=== PATIENT | female | born 1990 | race Caucasian/White ===

== ENCOUNTER 2023-02-08 08:24 | Emergency (ER) | payer OTHER, SELFPAY ==
[2023-02-08 08:42] VITALS: BP 127/84; PULSE 110; RESP 16; TEMP 37.1; O2SAT 100
--- NOTE | 2023-02-08 09:00 | ED.SKABFB ---
HPI - Skin/Abscess/Foreign Bdy General Chief complaint: Skin/Abscess/Foreign Body Stated complaint: RED SPOT ON CHEST Time Seen by Provider: 02/08/23 09:00 Source: patient Mode of arrival: ambulatory Limitations: no limitations History of Present Illness HPI narrative: 33 yo F presents with c/o infected cyst to chest. States has had cyst for approx. 4 yrs. 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 States now painful, red and swollen. no drainage. Did apply heating pad last night. afebrile. All systems reviewed and negative except as noted above. Related Data Home Medications Medication Instructions Recorded Confirmed escitalopram oxalate 10 mg tablet 10 mg PO DAILY 02/08/23 02/08/23 norgestrel 0.3 mg-ethinyl 1 tablet PO DAILY 02/08/23 02/08/23 estradiol 30 mcg tablet (Low-Ogestrel (28)) Allergies Allergy/AdvReac Type Severity Reaction Status Date / Time No Known Allergies Allergy Verified 02/08/23 08:56 Review of Systems Review of Systems: CONSTITUTIONAL: Denies fever, chills, or sweats. EYES: Denies visual changes, redness, or discharge. ENT: Denies rhinorrhea, congestion, sore throat, or otalgia. CARDIOVASCULAR: Denies chest pain, palpitations, or edema. RESPIRATORY: Denies cough or dyspnea. GASTROINTESTINAL: Denies abdominal pain, nausea, vomiting, or diarrhea. GENITOURINARY: Denies dysuria or hematuria. SKIN: Denies rash or itching. Reports infected cyst to chest MUSCULOSKELETAL: Denies back pain, joint pain, or myalgia. NEUROLOGIC: Denies headache, numbness, or weakness. PSYCHIATRIC: Denies anxiety or depression. All other systems reviewed are negative, except as documented in HPI. PMFSH Comments At time of signature, agree with nursing past medical, surgical, social and family history. There is no relevant family history pertinent to the presenting complaint. Exam Narrative: GENERAL: This is a well-nourished, well-developed patient, in no apparent distress. HEAD: normocephalic, atraumatic. EYES: PERRL. Sclera clear/white. Vision is grossly intact. EARS: External ears normal NOSE: External nose normal NECK: Neck supple, non-tender without lymphadenopathy, masses or thyromegaly. CARDIOVASCULAR: Regular rate and rhythm without murmurs, gallops, or rubs. RESPIRATORY: Clear to auscultation. Breath sounds equal bilaterally. No wheezes, rales, or rhonchi. SKIN: warm, Dry, intact with no suspicious rash, good texture and turgor. cyst to center of chest near R breast tissue, approx. 2 to 3 cm. erythematous, indurated, no fluctuance or drainage NEURO: awake, alert, and oriented to person, place and time. There were no obvious focal neurologic abnormalities. EXTREMITIES: No joint tenderness, effusion, or edema noted. Chest: Chest/axillae images: 1. infected cyst Course Course Level of Care: Express Care Visit Vital Signs Vital signs: Vital Signs Temperature 37.1 C 02/08/23 08:42 Pulse Rate 110 H 02/08/23 08:42 Respiratory Rate 16 02/08/23 08:42 Blood Pressure 127/84 02/08/23 08:42 Pulse Oximetry 100 02/08/23 08:42 Temperature 37.1 C 02/08/23 08:42 Pulse Rate 110 H 02/08/23 08:42 Respiratory Rate 16 02/08/23 08:42 Blood Pressure 127/84 02/08/23 08:42 Pulse Oximetry 100 02/08/23 08:42 reviewed MDM - Skin/Abscess/Foreign Bdy MDM Narrative Medical decision making narrative: Patient is aware of diagnosis, understands and agrees to treatment plan. Anticipatory guidance given. Patient agrees to follow-up as directed and is aware of reasons to seek care at the emergency department. Portions of this record may have been created with voice recognition software cyst not appropriate for I and D. will treat with clindamycin and bactroban. recommend follow up with divine healer. Discharge Plan Discharge Clinical Impression: Infected cyst of skin Patient Disposition: Home, Self-Care Condition: Stable Instructions: Antibioti
== END 2023-02-08 09:09 | disposition home or self-care (01) ==
PROVIDERS: Emergency Provider Nurse Practitioner Family
DX: L72.9 Follicular cyst of the skin and subcutaneous tissue, unspecified (principal)
CPT/HCPCS: 99213; G0463

== ENCOUNTER 2025-02-11 15:59 | Emergency (ER) | payer OTHER, SELFPAY ==
--- NOTE | ~2025-02-11 | CT_ITS ---
EXAMINATION: CTA brain carotid DATE: 02/11/2025 19:33 [facility] INDICATION: Transient monocular vision loss TECHNIQUE: Computed tomographic angiography (CTA) of the head was performed without and with 100 mL Omnipaque-350 intravenous contrast. CTA of the neck was performed with intravenous contrast. The dose-length product was 1673.80 mGy-cm. Maximum intensity projection and volume rendered 3D-reconstructions were created by the technologist on a separate workstation. COMPARISON: None. FINDINGS: HEAD CT/CTA: Normal brain parenchymal volume. Normal wolff-white differentiation. No ventriculomegaly or midline shift. Orbits are symmetric without disconjugate gaze. No acute infarction, hemorrhage, mass or mass effect. Basilar cisterns are patent. Paranasal sinuses and mastoids are pneumatized. No depressed skull fractures. The intracranial arteries are within normal limits in course and caliber without evidence for aneurysm, significant stenosis or occlusion. No vascular anomalies. Dominant right vertebral artery. NECK CTA: The carotid arteries are normal in course and caliber without evidence for significant atherosclerotic change, dissection or occlusion. Vertebral arteries are normal in course and caliber. The origins of the common carotid and vertebral arteries are normal. Lung apices are normal. There is 0% stenosis of the proximal right internal carotid artery relative to normal distal artery lumen diameter (NASCET criteria). There is 0% stenosis of the proximal left internal carotid artery relative to normal distal artery lumen diameter. IMPRESSION: 1.: Unremarkable CT angiogram of the head and neck. No acute intracranial abnormality. Reviewed, dictated and finalized at location [facility] IMPRESSION: 1.: Unremarkable CT angiogram of the head and neck. No acute intracranial abnor mality.
[2025-02-11 16:15] VITALS: BP 137/95; PULSE 98; RESP 16; TEMP 36.7; O2SAT 100
--- NOTE | 2025-02-11 17:25 | ED.EYEPROB ---
HPI - Eye Problem General Chief complaint: Eye Problems <Jie Salmon PA-C - Last Filed: 02/12/25 17:10> Stated complaint: lost vision in L eye yesterday, has since returned <Jie Salmon PA-C - Last Filed: 02/12/25 17:10> Time Seen by Provider: 02/11/25 17:25 <Jie Salmon PA-C - Last Filed: 02/12/25 17:10> Focused HPI: This is a 35 year old female that presents to the ER for transient monocular vision loss. Reports she turned her head and then turned back around and could only see out of a very small spot in the left eye. Lasted for about 3-4 hours. She saw her eye doctor yesterday after this. She was prompted to be seen in the ER to rule out a stroke. Wears glasses and contacts. GENERAL: Well-appearing, well-nourished, and in no acute distress. HEAD: Normocephalic, atraumatic. CHEST: Clear to auscultation. ?No respiratory distress. HEART: Regular rate and rhythm.? NEURO: ?Alert and oriented x3. Patient screened in triage and initial orders placed.? ?Additional care and disposition to be based upon?diagnostic testing and treatment. <Jie Salmon PA-C - Last Filed: 02/12/25 17:10> History of Present Illness HPI Narrative: Agree with above HPI. Patient also reports a significant history of ocular migraines. Denies headache, nausea/vomiting, slurred speech, facial droop, or problems with ambulation. <ADRIÁN Sellers Last Filed: 02/12/25 01:55> Related Data Home medications: Home Medications ?Medication ?Instructions ?Recorded ?Confirmed ?Last Taken ?Type escitalopram oxalate 10 mg tablet 10 mg PO DAILY 02/08/23 02/08/23 Unknown History norgestrel 0.3 mg-ethinyl 1 tablet PO DAILY 02/08/23 02/08/23 Unknown History estradiol 30 mcg tablet (Low-Ogestrel (28)) <Jie Salmon PA-C - Last Filed: 02/12/25 17:10> Allergies/adverse reactions: Allergies Allergy/AdvReac Type Severity Reaction Status Date / Time No Known Allergies Allergy Verified 02/11/25 16:18 <Jie Salmon PA-C - Last Filed: 02/12/25 17:10> Review of Systems Review of Systems: All systems reviewed & are unremarkable except as noted in HPI and below <ADRIÁN Sellers - Last Filed: 02/12/25 01:55> Exam Narrative: GENERAL: Well-appearing, well-nourished, and in no acute distress. HEAD: Normocephalic, atraumatic. EYES: PERRLA and EOMI. ENT: Nares clear, no rhinorrhea or epistaxis. Mucous membranes moist. Oropharynx without tonsillar hypertrophy exudate or other lesions. Bilateral TMs pearly wolff non-bulging NECK: Supple. No adenopathy or masses. No carotid bruits or JVD CHEST: Clear to auscultation. No respiratory distress. No wheezes rales or rhonchi HEART: Regular rate and rhythm. No murmur heard. Normal peripheral pulses. ABDOMEN: Soft, nontender, nondistended, normal active bowel sounds. EXTREMITIES: Normal range of motion. No edema. SKIN: Warm, dry, no rash. NEURO: A&O X3. Speech clear. Follows commands. CN II-XII intact. Sensation grossly intact. Steady gait. No ataxic movements. Strength 5/5 in upper and lower extremities bilaterally. Qqon-dg-[id number] and dohccv-wg-aarf testing intact bilaterally. No pronator drift. PSYCH: Normal mood and affect <ADRIÁN Sellers - Last Filed: 02/12/25 01:55> Course Vital Signs Vital signs: Vital Signs Temperature 36.7 C 02/11/25 16:15 Pulse Rate 98 02/11/25 16:15 Respiratory Rate 16 02/11/25 16:15 Blood Pressure 137/95 H 02/11/25 16:15 Pulse Oximetry 100 02/11/25 16:15 Oxygen Delivery Room Air 02/11/25 16:15 Temperature 36.7 C 02/11/25 16:15 Pulse Rate 93 02/11/25 22:00 Respiratory Rate 20 02/11/25 22:00 Blood Pressure 119/78 02/11/25 22:00 Pulse Oximetry 98 02/11/25 22:00 Oxygen Delivery Room Air 02/11/25 16:15 <Jie Salmon PA-C - Last Filed: 02/12/25 17:10> Vital Signs Temperature 36.7 C 02/11/25 16:15 Pulse Rate 98 02/11/25 16:15 Respiratory Rate 16 02/11/25 16:15 Blood Pressure 137/95 H 02/11/25 16:15 Pulse Oximetry 100 02/11/25 16:15 Oxygen Delivery Room Air 02/11/25 16:15 Temperature 36.7 C 02/11/25 16:15 Pulse Rate 93 02/11/25 22:00 Respiratory Rate 20 02/11/25 22:00 Blood Pressure 119/78 02/11/25 22:00 Pulse Oximetry 98 02/11/25 22:00 Oxygen Delivery Room Air 02/11/25 16:15 <ADRIÁN Sellers - Last Filed: 02/12/25 01:55> [facility] Narrative Medical decision making narrative: This is a 35 year old female that presents to the ER for transient monocular vision loss. Reports she turned her head and then turned back around and could only see out of a very small spot in the left eye. Lasted for about 3-4 hours. She saw her eye doctor yesterday after this. She was prompted to be seen in the ER to rule out a stroke. Wears glasses and contacts. Patient also reports a significant history of ocular migraines. Denies headache, nausea/vomiting, slurred speech, facial droop, history of trauma, or problems with ambulation. Upon my initial assessment patient appears nontoxic with stable vitals reporting no complaints. Thorough neurological exam exhibits no acute abnormalities or focal deficits. Lab work, imaging, and EKG without significant high-risk changes. Differential diagnosis and treatment plan were discussed with the patient. Patient agrees with discussion and after shared medical decision making agrees with plan of care. All questions were answered to the patient's satisfaction. The patient is appropriate for outpatient treatment and follow-up. Given reasons to return. <ADRIÁN Sellers - Last Filed: 02/12/25 01:55> Differential Diagnosis Differential Diagnosis: Differential diagnostic considerations for headache include ICH, IC infx, migraine, tension CLINE, CVA/TIA, vasculitis/arteritis, cluster headache, dissection (carotid/vertebral), tumor/mass/abscess, thrombosis, meningitis, sinusitis, post-concussion syndrome. <ADRIÁN Sellers - Last Filed: 02/12/25 01:55> Medical Records I have reviewed the following patient records and this information was taken into consideration when formulating the assessment and plan.: previous ER visits <ADRIÁN Sellers - Last Filed: 02/12/25 01:55> Lab Data MDM Lab Attestation statement: I personally reviewed the patient's lab results. <ADRIÁN Sellers - Last Filed: 02/12/25 01:55> Result diagrams: 02/11/25 17:59 02/11/25 17:59 <Jie Salmon PA-C - Last Filed: 02/12/25 17:10> Labs: Lab Results 02/11/25 02/11/25 02/11/25 Range/Units 17:59 18:55 18:56 WBC 5.5 (4.5-10.0) K/mm3 RBC 4.31 (4.2-5.4) M/mm3 Hgb 13.8 (12.0-15.0) g/dL Hct 40.9 (37.0-47.0) % MCV 94.9 (80-100) fl MCH 32.0 (26-34) pg MCHC 33.7 (32-36) g/dl RDW 12.9 (11.5-14.5) % Plt Count 285 (150-375) k/mm3 MPV 10.7 H (7.4-10.4) fl Immature Gran % (Auto) 0.2 (0-0.5) % Neut % (Auto) 55.2 (45.5-73.1) % Lymph % (Auto) 35.9 (18.3-44.2) % [place] % (Auto) 5.6 (2.6-8.5) % Eos % (Auto) 2.2 (0-4.4) % Baso % (Auto) 0.9 (0.2-1.2) % Lymph # (Auto) 1.98 (0.9-3.2) K/mm3 [place] # (Auto) 0.3 (0.1-0.6) K/mm3 Eos # (Auto) 0.1 (0-0.3) K/mm3 Baso # (Auto) 0.1 (0.0-0.1) K/mm3 Abs Immat Gran (auto) 0.01 (0.00-0.031) K/mm3 Absolute Neuts (auto) 3.0 (1.3-6.7) K/mm3 Absolute Nucleated RBC 0.000 (0.0-0.012) K/mm3 Nucleated RBC % 0.0 (0.0-0.2) % PT 12.8 (11.1-14.7) Seconds INR 1.0 APTT 31.3 (22.3-36.8) Seconds Sodium 137 (137-145) mmol/L Potassium 4.0 (3.4-5.0) mmol/L Chloride 106 (98-107) mmol/L Carbon Dioxide 23 (22-30) mmol/L Anion Gap 8 (4-12) mmol/L BUN 10 (7-17) mg/dL Creatinine 0.77 (0.7-1.0) mg/dL Estim Creat Clear Calc 94 ml/min Estimated GFR > 60 (59 - ) Glucose 96 (65-110) mg/dL POC Capillary Glucose 90 (65-105) mg/dl Calcium 9.3 (8.4-10.2) mg/dL Total Bilirubin 0.5 (0.2-1.3) mg/dL AST 30 (14-36) U/L ALT 30 (6-35) U/L Alkaline Phosphatase 58 (38-126) U/L Troponin I < 0.012 (0.000-0.034) ng/mL Total Protein 7.6 (6.3-8.2) g/dL Albumin 4.4 (3.5-5.1) g/dL POC Urine HCG, Qual Negative (Negative) <Jie Salmon PA-C - Last Filed: 02/12/25 17:10> Lab Results 02/11/25 02/11/25 02/11/25 Range/Units 17:59 18:55 18:56 WBC 5.5 (4.5-10.0) K/mm3 RBC 4.31 (4.2-5.4) M/mm3 Hgb 13.8 (12.0-15.0) g/dL Hct 40.9 (37.0-47.0) % MCV 94.9 (80-100) fl MCH 32.0 (26-34) pg MCHC 33.7 (32-36) g/dl RDW 12.9 (11.5-14.5) % Plt Count 285 (150-375) k/mm3 MPV 10.7 H (7.4-10.4) fl Immature Gran % (Auto) 0.2 (0-0.5) % Neut % (Auto) 55.2 (45.5-73.1) % Lymph % (Auto) 35.9 (18.3-44.2) % [place] % (Auto) 5.6 (2.6-8.5) % Eos % (Auto) 2.2 (0-4.4) % Baso % (Auto) 0.9 (0.2-1.2) % Lymph # (Auto) 1.98 (0.9-3.2) K/mm3 [place] # (Auto) 0.3 (0.1-0.6) K/mm3 Eos # (Auto) 0.1 (0-0.3) K/mm3 Baso # (Auto) 0.1 (0.0-0.1) K/mm3 Abs Immat Gran (auto) 0.01 (0.00-0.031) K/mm3 Absolute Neuts (auto) 3.0 (1.3-6.7) K/mm3 Absolute Nucleated RBC 0.000 (0.0-0.012) K/mm3 Nucleated RBC % 0.0 (0.0-0.2) % PT 12.8 (11.1-14.7) Seconds INR 1.0 APTT 31.3 (22.3-36.8) Seconds Sodium 137 (137-145) mmol/L Potassium 4.0 (3.4-5.0) mmol/L Chloride 106 (98-107) mmol/L Carbon Dioxide 23 (22-30) mmol/L Anion Gap 8 (4-12) mmol/L BUN 10 (7-17) mg/dL Creatinine 0.77 (0.7-1.0) mg/dL Estim Creat Clear Calc 94 ml/min Estimated GFR > 60 (59 - ) Glucose 96 (65-110) mg/dL POC Capillary Glucose 90 (65-105) mg/dl Calcium 9.3 (8.4-10.2) mg/dL Total Bilirubin 0.5 (0.2-1.3) mg/dL AST 30 (14-36) U/L ALT 30 (6-35) U/L Alkaline Phosphatase 58 (38-126) U/L Troponin I < 0.012 (0.000-0.034) ng/mL Total Protein 7.6 (6.3-8.2) g/dL Albumin 4.4 (3.5-5.1) g/dL POC Urine HCG, Qual Negative (Negative) <ADRIÁN Sellers Last Filed: 02/12/25 01:55> Imaging Data Attestation: I personally reviewed and interpreted this imaging study as follows: <ADRIÁN Sellers Last Filed: 02/12/25 01:55> Radiologist's impression: ITS Impressions Head/Neck CTA 02/11/25 19:33 IMPRESSION: 1.: Unremarkable CT angiogram of the head and neck. No acute intracranial abnormality. <Jie Salmon PA-C - Last Filed: 02/12/25 17:10> ITS Impressions Head/Neck CTA 02/11/25 19:33 IMPRESSION: 1.: Unremarkable CT angiogram of the head and neck. No acute intracranial abnormality. <ADRIÁN Sellers Last Filed: 02/12/25 01:55> ECG Data EKG #1: ECG completion date: 02/11/25 <ADRIÁN Sellers Last Filed: 02/12/25 01:55> ECG completion time: 18:11 <ADRIÁN Sellers Last Filed: 02/12/25 01:55> normal rate, sinus rhythm and no acute changes <ADRIÁN Sellers Last Filed: 02/12/25 01:55> Critical Care Time Critical Care Time Critical Care Time: No <МАРИЯ Diaz Last Filed: 02/12/25 17:10> Discharge Plan Discharge Clinical Impression: Peripheral vision loss, Ocular migraine <МАРИЯ Diaz Last Filed: 02/12/25 17:10> Patient Disposition: Home <МАРИЯ Diaz Last Filed: 02/12/25 17:10> Condition: Stable <МАРИЯ Diaz Last Filed: 02/12/25 17:10> Instructions: Ocular Migraine (ED) <МАРИЯ Diaz Last Filed: 02/12/25 17:10> Additional Instructions: Return to the emergency department if you experience fever, chest pain, shortness of breath, abdominal pain with nausea and vomiting, weakness, numbness/tingling, or any other symptoms that are concerning to you. Follow up with primary care doctor. <МАРИЯ Diaz Last Filed: 02/12/25 17:10> Patient Language: Kazakh <МАРИЯ Diaz Last Filed: 02/12/25 17:10> Prescriptions: No Action Low-Ogestrel (28) 0.3-30 mg-mcg tablet 1 tablet PO DAILY escitalopram oxalate 10 mg tablet 10 mg PO DAILY clindamycin HCl 300 mg capsule 300 mg PO Q8H 10 Days Qty: 30 0RF mupirocin 2 % ointment 1 applic topical BID 7 Days Qty: 15 0RF <МАРИЯ Diaz Last Filed: 02/12/25 17:10> Follow-up/Referrals: PHYSICIAN,MARKETING PRODUCTION MANAGER [Primary Care Provider, Internal Medicine] <МАРИЯ Diaz Last Filed: 02/12/25 17:10>
--- NOTE | 2025-02-11 17:27 | ECG_ITS ---
Test Date: 2025-02-11 18:11:48 Measurements Intervals [place] Rate: 77 P: 46 NH: 154 QRS: 51 QRSD: 98 T: 8 QT: 371 QTc: 421 Interpretive Statements SINUS RHYTHM WITH SINUS ARRHYTHMIA BASELINE ARTIFACT- I, III, AVL NORMAL ECG No previous ECG available for comparison Electronically Signed On 02-11-2025 20:38:01 MARKET RESEARCH SPECIALIST by Shay Wilkins D.O.
[2025-02-11 17:50] VITALS: BP 138/89; PULSE 95; RESP 13; O2SAT 100
[2025-02-11 18:09] LABS: Hematocrit 40.9 % (37.0-47.0); Hemoglobin 13.8 g/dL (12.0-15.0); Immature Granulocyte Percent A 0.2 % (0-0.5); Lymphocytes Absolute Auto 1.98 K/mm3 (0.9-3.2); Mean Corpuscular HGB Conc 33.7 g/dl (32-36); Mean Corpuscular Hemoglobin 32.0 pg (26-34); Mean Corpuscular Volume 94.9 fl (80-100); Nucleated Red Blood Cells Absolute Auto 0.000 K/mm3 (0.0-0.012); Nucleated Red Blood Cells Perc 0.0 % (0.0-0.2); Platelet Count Result 285 k/mm3 (150-375); Red Blood Count 4.31 M/mm3 (4.2-5.4); White Blood Count 5.5 K/mm3 (4.5-10.0)
[2025-02-11 18:30] LABS: INR 1.0; Partial Thromboplastin Time 31.3 Seconds (22.3-36.8); Prothrombin Time 12.8 Seconds (11.1-14.7)
[2025-02-11 18:38] LABS: Troponin I < 0.012 ng/mL (0.000-0.034)
[2025-02-11 18:59] LABS: BEDSIDEPREGUCG Negative (Negative)
[2025-02-11 19:08] LABS: Alanine Aminotransferase 30 U/L (6-35); Albumin Level 4.4 g/dL (3.5-5.1); Alkaline Phosphatase 58 U/L (38-126); Anion Gap 8 mmol/L (4-12); Aspartate Amino Transferase 30 U/L (14-36); Bilirubin,Total 0.5 mg/dL (0.2-1.3); Blood Urea Nitrogen 10 mg/dL (7-17); Calcium 9.3 mg/dL (8.4-10.2); Carbon Dioxide 23 mmol/L (22-30); Chloride 106 mmol/L (98-107); Estimated CRCL calculation 94 ml/min; Estimated Glomerular Filt Rate > 60; Glucose 96 mg/dL (65-110); Potassium 4.0 mmol/L (3.4-5.0); Sodium 137 mmol/L (137-145); Total Protein 7.6 g/dL (6.3-8.2)
[2025-02-11 19:15] VITALS: BP 114/83; PULSE 85; RESP 15; O2SAT 98
[2025-02-11 22:00] VITALS: BP 119/78; PULSE 93; RESP 20; O2SAT 98
== END 2025-02-11 22:02 | disposition home or self-care (01) ==
PROVIDERS: Physician Assistant
DX: G43.B0 Ophthalmoplegic migraine, not intractable (principal); H53.122 Transient visual loss, left eye
CPT/HCPCS: 36415; 70496; 70498; 80053; 81025; 82948; 84484; 85025; 85610; 85730; 93005; 99284; Q9967